=== PATIENT | female | born 1980 | race Asian ===

== ENCOUNTER 2016-03-27 10:21 | Emergency (ER) | payer OTHER ==
[~2016-03-27] VITALS: Ht 177.8 cm; Wt 65.9 kg
[2016-03-27 10:35] VITALS: TEMP 98.2
[2016-03-27 11:04] VITALS: BP 89/61; PULSE 74
== END 2016-03-27 11:06 | disposition left against medical advice (07) ==
LOC: COL.ER 10:21
DX: R55 Syncope and collapse (principal); R10.84 Generalized abdominal pain; Z53.21 Procedure and treatment not carried out due to patient leaving prior to being seen by health care provider; Z98.890 Other specified postprocedural states

== ENCOUNTER → 2016-03-27 | Outpatient (CLI) | payer OTHER | LOC: COL.RAD 08:30 | DX: N97.9 Female infertility, unspecified (principal) | CPT/HCPCS: Q9967 ==